=== PATIENT | male | born 1950 | race Caucasian/White ===

== ENCOUNTER 2022-09-03 15:41 | Emergency (ER) | payer MEDICARE ==
[~2022-09-03] VITALS: Ht 170 cm; Wt 72.0 kg
[2022-09-03 15:50] VITALS: BP 165/85
[2022-09-03] MEDS ORDERED: ATOR80TA76 PO (16:03)
[2022-09-03] MEDS ORDERED: GLIP5TAB13 PO (16:03)
[2022-09-03] MEDS ORDERED: METF-399 PO (16:03)
[2022-09-03] MEDS ORDERED: IRBE75TA9 PO (16:03)
[2022-09-03] MEDS ORDERED: INDO25CA99 PO (16:03)
--- NOTE | 2022-09-03 16:03 | ED General ---
General Chief Complaint: Lower Extremity Stated Complaint: MED REFILL Source of Information: Patient Exam Limitations: No Limitations History of Present Illness Date Seen by Provider: Sep 03, 2022 Time Seen by Provider: 15:45 Initial Comments 72-year-old male with past medical history of diabetes, hyperlipidemia, hypertension, gout coming in due to needing a med refill. He moved from [place], [place] recently ran out of his medicines about a month ago. Has been try to get in with a primary care provider, he lives in [place]. Has been unable to as of yet. Does endorse a mild gout flare which she states is pretty typical for him. Otherwise denying any other acute complaints Allergies and Home Medications Allergies Coded Allergies: No Known Drug Allergies (Unverified , 09/03/22) Patient Home Medication List Home Medication List Reviewed: Yes Review of Systems Review of Systems Constitutional: No fever EENTM: no symptoms reported Respiratory: no symptoms reported Cardiovascular: no symptoms reported Gastrointestinal: no symptoms reported Genitourinary: no symptoms reported Musculoskeletal: see HPI Skin: no symptoms reported Psychiatric/Neurological: No Symptoms Reported Hematologic/Lymphatic: No Symptoms Reported Immunological/Allergic: no symptoms reported All Other Systems Reviewed Negative Unless Noted: Yes Past Wdfxvas-[id number]-[id number] Hx Patient Social History Tobacco Use?: No Substance use?: No Alcohol Use?: No Pt feels they are or have been: No Immunizations Up To Date Influenza Vaccine Up-to-Date: No; Not Current Past Medical History Surgery/Hospitalization HX: NECK X2, R SHOULDER, R KNEE CAP, R WRIST Surgeries: Yes Physical Exam Vital Signs Capillary Refill : Height, Weight, BMI Height: '" Weight: lbs. oz. kg; BMI Method: General Appearance: No Apparent Distress, WD/WN Eyes: Bilateral Eye Normal Inspection HEENT: PERRL/EOMI, Normal ENT Inspection, Pharynx Normal Neck: Full Range of Motion, Normal Inspection, Non Tender, Supple Respiratory: Chest Non Tender, Lungs Clear, Normal Breath Sounds, No Accessory Muscle Use, No Respiratory Distress Cardiovascular: Regular Rate, Rhythm, No Edema, Normal Peripheral Pulses Gastrointestinal: Normal Bowel Sounds, Non Tender, Soft; No Distended, No Guarding Back: Normal Inspection, No CVA Tenderness Extremity: Normal Capillary Refill, Normal Inspection, Normal Range of Motion, Non Tender, No Calf Tenderness, No Pedal Edema Neurologic/Psychiatric: Alert, No Motor/Sensory Deficits, Normal Mood/Affect Skin: Normal Color, Warm/Dry Lymphatic: No Adenopathy Progress/Results/Core Measures Suspected Sepsis SIRS Temperature: Pulse: Respiratory Rate: Blood Pressure / Mean: Results/Orders Vital Signs/I&O Capillary Refill : Progress Note : Progress Note Patient presents for medication refill. Given the extenuating circumstance where he cannot find a PCP and just moved here, will comply this time, I discussed with patient that possibly we will not rewrite for them in the future unless absolutely necessary. Given information on how to follow-up with [facility] Departure Impression Primary Impression: Medication refill Disposition: HOME, SELF-CARE Condition: Stable Departure-Patient Inst. Decision time for Depature: 15:59 Referrals: [facility]/MICHELLE LOCK,LOCAL PHYSICIAN (PCP) Primary Care Physician Patient Instructions: Gout (DC) Add. Discharge Instructions: Your medications have been sent to the pharmacy and also ago. Please call [facility] to schedule an appointment, likely in [facility] Irbesartan (Irbesartan) 75 Mg Tablet 75 MG PO DAILY for 30 Days, #30 TAB Prov: CJ INMAN MD 09/03/22 Indomethacin (Indomethacin) 25 Mg Capsule 25 MG PO TID PRN for PAIN-SEVERE (8-10) for 7 Days, #21 CAP Prov: CJ INMAN MD 09/03/22 Atorvastatin Calcium (Atorvastatin Calcium) 80 Mg Tablet 80 MG PO DAILY for 30 Days, #30 TAB Prov: CJ INMAN MD 09/03/22 Glipizide (Glipizide) 5 Mg Tablet 5 MG PO DAILY for 30 Days, #30 TAB Prov: CJ INMAN MD 09/03/22 Metformin HCl (Metformin HCl) 1,000 Mg Tablet 1000 MG PO BID for 30 Days, #60 TAB Prov: CJ INMAN MD 09/03/22 Work/School Note: Work Release Form Date Seen in the Emergency Department: Sep 03, 2022 Return to Work: Sep 04, 2022 Restrictions: No Restrictions CJ INMAN MD Sep 03, 2022 16:03
== END 2022-09-03 16:09 | disposition home or self-care (01) ==
LOC: ER 15:43
DX: Z76.0 Encounter for issue of repeat prescription (principal); Z28.310 Unvaccinated for COVID-19
CPT/HCPCS: 82947